=== PATIENT | female | born 1965 | race Caucasian/White ===

== ENCOUNTER 2018-09-09 11:40 | Inpatient (IN) | payer OTHER ==
[~2018-09-09] VITALS: Ht 157.5 cm; Wt 61.0 kg
[~2018-09-09 11:40] MED LIST: CALC-15 PO; DIVA250T45 PO; DOCU-275 PO; GEMF600T5 PO; LEVO75 PO; METO25XL PO; OXYB5 PO; QUET25TA PO
[2018-09-09] MEDS ORDERED: SODIUM CHLORIDE 0.9% 1,000 ML IV ONE ×2 (12:00→15:30)
[2018-09-09] MEDS ORDERED: IOVERSOL 320 MG/ML 100 ML VIAL ONE (12:05)
[2018-09-09] MEDS ORDERED: VITAD1000 PO (12:12)
[2018-09-09] MEDS ORDERED: BENZ1TAB10 PO (12:12)
[2018-09-09] MEDS ORDERED: GUAI100S35 PO (12:12)
[2018-09-09] MEDS ORDERED: ARIP5TAB8 PO (12:12)
[2018-09-09] MEDS ORDERED: LEVE500T53 PO (12:12)
[2018-09-09] MEDS ORDERED: [UNRECOGNIZED DRUG - CODE] PO (12:12)
[2018-09-09 13:18] LABS: BASOPHILS % (AUTO) 0.9 % (0.0-2.0); EOSINOPHILS % (AUTO) 0.7 % (1.0-6.0); HEMATOCRIT 32.6 % (36-46); HEMOGLOBIN 10.6 g/dL (12.0-16.0); LYMPHOCYTES # (AUTO) 1.4 K/uL (1.0-4.8); LYMPHOCYTES % (AUTO) 16.3 % (22.0-44.0); MEAN CORPUSCULAR HEMOGLOBIN 28.4 pg (26.0-34.0); MEAN CORPUSCULAR HGB CONC 32.6 G/dL (31.0-37.0); MEAN CORPUSCULAR VOLUME 87 fL (80-100); MONOCYTES # (AUTO) 0.6 K/uL (0.1-1.0); MONOCYTES % (AUTO) 7.3 % (2.0-9.0); NEUTROPHILS # (AUTO) 6.2 K/uL (1.8-7.7); NEUTROPHILS % (AUTO) 74.8 % (40.0-70.0); PLATELET COUNT (AUTO) 440 K/uL (150-450); RED BLOOD CELL COUNT(AUTO) 3.74 MIL/uL (4.00-5.20)
[2018-09-09 13:50] LABS: ALANINE AMINOTRANSFERASE 16 U/L (12-78); ALBUMIN 2.8 g/dL (3.4-5.0); ALKALINE PHOSPHATASE 85 U/L (46-116); ANION GAP 7 mmol/L (8-16); ASPARTATE AMINOTRANSFERASE 10 U/L (15-37); BILIRUBIN,TOTAL 0.4 mg/dL (0.1-1.0); CALCIUM, TOTAL 8.6 mg/dL (8.8-10.5); CARBON DIOXIDE 31 mmol/L (22-29); CHLORIDE 102 mmol/L (98-107); CREATININE 0.78 mg/dL (0.60-1.30); GLOMERULAR FILTR. RATE CALC > 60 mL/min (>60); GLUCOSE,RANDOM 85 mg/dL (70-110); POTASSIUM 3.7 mmol/L (3.5-5.1); SODIUM SERUM 140 mmol/L (136-145); TOTAL PROTEIN, SERUM 6.5 g/dL (6.4-8.2); UREA NITROGEN, BLOOD 15 mg/dL (7-18)
[2018-09-09 14:08] LABS: APPEARANCE,URINE CLOUDY (CLEAR); BILIRUBIN,URINE NEGATIVE (NEGATIVE); GLUCOSE, URINE (UA) NEGATIVE (NEGATIVE); KETONES,URINE TRACE mg/dL (NEGATIVE); LEUKOCYTE ESTERASE ,URINE NEGATIVE (NEGATIVE); NITRATE,URINE POSITIVE (NEGATIVE); OCCULT BLOOD,URINE MODERATE (NEGATIVE); PROTEIN,URINE NEGATIVE (NEGATIVE); UROBILINOGEN,URINE 0.2 mg/dL (<=1.0)
[2018-09-09 14:18] LABS: BACTERIA,URINE Many /HPF (None Seen); SQUAMOUS EPITHELIAL CELL,UR Few /LPF (None Seen); WBC,URINE 0-2 /HPF (0-5)
[2018-09-09] MEDS ORDERED: ONDANSETRON HCL 4 MG/2 ML VIAL IVP PRN (15:30)
[2018-09-09 17:00] VITALS: BP 120/79
[2018-09-09] MEDS: HEPARIN SODIUM,PORCINE 5,000 UNITS/ML VIAL SQ SCH (18:58)
[2018-09-09] MEDS: DEXTROSE 5%-0.45% SODIUM CHL 1,000 ML IV SCH (18:58)
[2018-09-09 19:30] VITALS: BP 113/71
[2018-09-09] MEDS: LEVOTHYROXINE SODIUM 100 MCG VIAL IVP SCH (21:25)
[2018-09-09] MEDS: CefTRIAXone SODIUM 1 GM in DEXTROSE 5%-WATER 10 ML IV SCH (21:26)
[2018-09-09 23:18] VITALS: BP 113/68
[2018-09-10] MEDS: HEPARIN SODIUM,PORCINE 5,000 UNITS/ML VIAL SQ SCH ×3 (01:08→16:29)
[2018-09-10 03:30] VITALS: BP 115/76
[2018-09-10] MEDS: DEXTROSE 5%-0.45% SODIUM CHL 1,000 ML IV SCH ×2 (05:51→16:22)
[2018-09-10 08:42] VITALS: BP 115/71
[2018-09-10] MEDS: LEVOTHYROXINE SODIUM 100 MCG VIAL IVP SCH (09:13)
[2018-09-10 10:54] LABS: BASOPHILS % (AUTO) 1.1 % (0.0-2.0); EOSINOPHILS % (AUTO) 0.2 % (1.0-6.0); HEMATOCRIT 32.2 % (36-46); HEMOGLOBIN 10.5 g/dL (12.0-16.0); LYMPHOCYTES # (AUTO) 0.7 K/uL (1.0-4.8); LYMPHOCYTES % (AUTO) 7.4 % (22.0-44.0); MEAN CORPUSCULAR HEMOGLOBIN 28.1 pg (26.0-34.0); MEAN CORPUSCULAR HGB CONC 32.7 G/dL (31.0-37.0); MEAN CORPUSCULAR VOLUME 86 fL (80-100); MONOCYTES # (AUTO) 0.5 K/uL (0.1-1.0); MONOCYTES % (AUTO) 4.7 % (2.0-9.0); NEUTROPHILS # (AUTO) 8.5 K/uL (1.8-7.7); PLATELET COUNT (AUTO) 408 K/uL (150-450); RED BLOOD CELL COUNT(AUTO) 3.75 MIL/uL (4.00-5.20); RED CELL DISTRIBUTION WIDTH 14.9 % (11.5-14.5)
[2018-09-10 10:56] LABS: NEUTROPHILS % (AUTO) 86.6 % (40.0-70.0)
[2018-09-10 11:04] LABS: ANION GAP 6 mmol/L (8-16); CARBON DIOXIDE 29 mmol/L (22-29); CHLORIDE 102 mmol/L (98-107); CREATININE 0.81 mg/dL (0.60-1.30); GLOMERULAR FILTR. RATE CALC > 60 mL/min (>60); GLUCOSE,RANDOM 141 mg/dL (70-110); POTASSIUM 3.5 mmol/L (3.5-5.1); SODIUM SERUM 137 mmol/L (136-145); UREA NITROGEN, BLOOD 10 mg/dL (7-18)
[2018-09-10 11:20] VITALS: BP 121/73
[2018-09-10] MEDS ORDERED: MAGNESIUM CITRATE 300 ML ORAL SOLUTION PO ONE (13:00)
[2018-09-10 15:41] VITALS: BP 127/78
[2018-09-10] MEDS: DOCUSATE SODIUM 100 MG CAPSULE PO SCH ×2 (16:22→20:48)
[2018-09-10 19:30] VITALS: BP 139/79
[2018-09-10] MEDS: CefTRIAXone SODIUM 1 GM in DEXTROSE 5%-WATER 10 ML IV SCH (21:30)
[2018-09-10 23:35] VITALS: BP 131/76
[2018-09-11] MEDS: HEPARIN SODIUM,PORCINE 5,000 UNITS/ML VIAL SQ SCH ×4 (00:23→23:37)
[2018-09-11] MEDS: DEXTROSE 5%-0.45% SODIUM CHL 1,000 ML IV SCH ×2 (02:57→13:21)
[2018-09-11 04:06] VITALS: BP 119/73
[2018-09-11 06:18] LABS: ANION GAP 6 mmol/L (8-16); CALCIUM, TOTAL 7.9 mg/dL (8.8-10.5); CARBON DIOXIDE 29 mmol/L (22-29); CHLORIDE 104 mmol/L (98-107); GLOMERULAR FILTR. RATE CALC > 60 mL/min (>60); GLUCOSE,RANDOM 137 mg/dL (70-110); POTASSIUM 3.1 mmol/L (3.5-5.1); SODIUM SERUM 139 mmol/L (136-145); UREA NITROGEN, BLOOD 9 mg/dL (7-18)
[2018-09-11 07:40] VITALS: BP 126/78
[2018-09-11] MEDS: DOCUSATE SODIUM 100 MG CAPSULE PO SCH ×2 (08:40→20:23)
[2018-09-11] MEDS: LEVOTHYROXINE SODIUM 100 MCG VIAL IVP SCH (08:41)
[2018-09-11 11:33] VITALS: BP 132/63
[2018-09-11] MEDS: POTASSIUM CHL 10 MEQ/WATER 50 ML IV PRN ×4 (13:22→23:37)
[2018-09-11 15:25] VITALS: BP 124/63
[2018-09-11 20:09] VITALS: BP 129/86
[2018-09-11] MEDS: CefTRIAXone SODIUM 1 GM in DEXTROSE 5%-WATER 10 ML IV SCH (20:23)
[2018-09-11] MEDS ORDERED: SODIUM CHLORIDE 0.9% 0 ML IV ONE (23:39)
[2018-09-12] VITALS (7 sets, daily range): BP systolic 118–128; BP diastolic 74–94
[2018-09-12] MEDS: POTASSIUM CHL 10 MEQ/WATER 50 ML IV PRN ×2 (00:45→01:39)
[2018-09-12] MEDS: DEXTROSE 5%-0.45% SODIUM CHL 1,000 ML IV SCH ×2 (05:19→19:42)
[2018-09-12 06:04] LABS: ANION GAP 6 mmol/L (8-16); CALCIUM, TOTAL 8.2 mg/dL (8.8-10.5); CARBON DIOXIDE 28 mmol/L (22-29); CHLORIDE 105 mmol/L (98-107); CREATININE 0.77 mg/dL (0.60-1.30); GLOMERULAR FILTR. RATE CALC > 60 mL/min (>60); GLUCOSE,RANDOM 111 mg/dL (70-110); POTASSIUM 3.8 mmol/L (3.5-5.1); SODIUM SERUM 139 mmol/L (136-145); UREA NITROGEN, BLOOD 8 mg/dL (7-18)
[2018-09-12 07:53] LABS: BASOPHILS % (AUTO) 0.7 % (0.0-2.0); EOSINOPHILS % (AUTO) 0.4 % (1.0-6.0); HEMATOCRIT 30.1 % (36-46); LYMPHOCYTES # (AUTO) 1.4 K/uL (1.0-4.8); LYMPHOCYTES % (AUTO) 12.9 % (22.0-44.0); MEAN CORPUSCULAR HEMOGLOBIN 28.5 pg (26.0-34.0); MEAN CORPUSCULAR HGB CONC 33.1 G/dL (31.0-37.0); MEAN CORPUSCULAR VOLUME 86 fL (80-100); MONOCYTES # (AUTO) 0.9 K/uL (0.1-1.0); MONOCYTES % (AUTO) 8.1 % (2.0-9.0); NEUTROPHILS # (AUTO) 8.4 K/uL (1.8-7.7); NEUTROPHILS % (AUTO) 77.9 % (40.0-70.0); PLATELET COUNT (AUTO) 365 K/uL (150-450); RED CELL DISTRIBUTION WIDTH 15.1 % (11.5-14.5)
[2018-09-12] MEDS: DOCUSATE SODIUM 100 MG CAPSULE PO SCH ×2 (09:00→20:13)
[2018-09-12] MEDS: LEVOTHYROXINE SODIUM 100 MCG VIAL IVP SCH (09:00)
[2018-09-12] MEDS: HEPARIN SODIUM,PORCINE 5,000 UNITS/ML VIAL SQ SCH ×3 (09:04→23:12)
[2018-09-12] MEDS: CefTRIAXone SODIUM 1 GM in DEXTROSE 5%-WATER 10 ML IV SCH (20:13)
[2018-09-13 05:06] VITALS: BP 122/89
[2018-09-13] MEDS: DEXTROSE 5%-0.45% SODIUM CHL 1,000 ML IV SCH ×3 (06:24→20:28)
[2018-09-13 07:28] VITALS: BP 138/71
[2018-09-13] MEDS ORDERED: LORazepam 2 MG/ML VIAL IM PRN (07:45)
[2018-09-13] MEDS: LORazepam 2 MG/ML VIAL IVP PRN ×2 (07:45→09:31)
[2018-09-13 08:00] VITALS: BP 123/73
[2018-09-13] MEDS: HEPARIN SODIUM,PORCINE 5,000 UNITS/ML VIAL SQ SCH ×2 (08:00→16:00)
[2018-09-13] MEDS ORDERED: [UNRECOGNIZED DRUG - REMARK] PO PRN (08:00)
[2018-09-13] MEDS ORDERED: LevETIRAcetam 1,000 MG in DEXTROSE 5%-WATER 100 ML IV ONE (08:15)
[2018-09-13] MEDS ORDERED: LORazepam 2 MG/ML VIAL IVP ONE ×2 (08:15→09:00)
[2018-09-13] MEDS: ARIPiprazole 5 MG TABLET PO SCH (09:00)
[2018-09-13] MEDS: LevETIRAcetam 500 MG TABLET PO SCH (09:00)
[2018-09-13] MEDS: DOCUSATE SODIUM 100 MG CAPSULE PO SCH (09:00)
[2018-09-13] MEDS: BENZTROPINE MESYLATE 1 MG TABLET PO SCH (09:00)
[2018-09-13] MEDS: CALCIUM OYSTER SHELL 500 MG TABLET PO SCH (09:00)
[2018-09-13] MEDS: CHOLECALCIFEROL (VIT D3) 1,000 UNITS TABLET PO SCH (09:00)
[2018-09-13 09:04] LABS: GLUCOMETER DEV NAME(LOC) 6N 1E; GLUCOSE,POINT OF CARE 239 MG/DL (70-110)
[2018-09-13 12:00] VITALS: BP 106/66
[2018-09-13 16:00] VITALS: BP 123/73
[2018-09-13] MEDS ORDERED: DILTIAZEM HCL 125 MG in DEXTROSE 5%-WATER 100 ML IV PRN (18:44)
[2018-09-13 19:24] LABS: BASOPHILS % (AUTO) 0.4 % (0.0-2.0); EOSINOPHILS % (AUTO) 0.1 % (1.0-6.0); HEMATOCRIT 29.1 % (36-46); HEMOGLOBIN 9.7 g/dL (12.0-16.0); LYMPHOCYTES # (AUTO) 0.9 K/uL (1.0-4.8); LYMPHOCYTES % (AUTO) 8.5 % (22.0-44.0); MEAN CORPUSCULAR HEMOGLOBIN 28.3 pg (26.0-34.0); MEAN CORPUSCULAR HGB CONC 33.2 G/dL (31.0-37.0); MEAN CORPUSCULAR VOLUME 85 fL (80-100); MONOCYTES # (AUTO) 0.7 K/uL (0.1-1.0); MONOCYTES % (AUTO) 6.3 % (2.0-9.0); NEUTROPHILS # (AUTO) 8.9 K/uL (1.8-7.7); NEUTROPHILS % (AUTO) 84.7 % (40.0-70.0); PLATELET COUNT (AUTO) 272 K/uL (150-450); RED BLOOD CELL COUNT(AUTO) 3.42 MIL/uL (4.00-5.20)
[2018-09-13 19:46] LABS: ALANINE AMINOTRANSFERASE 26 U/L (12-78); ALBUMIN 2.3 g/dL (3.4-5.0); ALKALINE PHOSPHATASE 95 U/L (46-116); ANION GAP 5 mmol/L (8-16); ASPARTATE AMINOTRANSFERASE 19 U/L (15-37); BILIRUBIN,TOTAL 0.4 mg/dL (0.1-1.0); CALCIUM, TOTAL 7.8 mg/dL (8.8-10.5); CARBON DIOXIDE 27 mmol/L (22-29); CHLORIDE 103 mmol/L (98-107); CREATININE 0.81 mg/dL (0.60-1.30); GLOMERULAR FILTR. RATE CALC > 60 mL/min (>60); GLUCOSE,RANDOM 96 mg/dL (70-110); POTASSIUM 3.3 mmol/L (3.5-5.1); SODIUM SERUM 135 mmol/L (136-145); TOTAL PROTEIN, SERUM 5.7 g/dL (6.4-8.2); UREA NITROGEN, BLOOD 9 mg/dL (7-18)
[2018-09-13 20:00] VITALS: BP 135/83
[2018-09-13] MEDS ORDERED: ACETAMINOPHEN 650 MG RECTAL SUPPOSITORY PR PRN (20:15)
[2018-09-13 20:44] LABS: PHOSPHORUS 3.5 mg/dL (2.5-4.9)
[2018-09-13] MEDS ORDERED: POTASSIUM CHLORIDE 10% 40 MEQ/30 ML LIQUID UDCUP NG ONE (20:45)
[2018-09-13] MEDS: ACETAMINOPHEN 650 MG/20.3 ML SOLUTION UDCUP NG PRN (20:56)
[2018-09-13] MEDS: QUEtiapine FUMARATE 25 MG TABLET PO SCH (21:00)
[2018-09-14] VITALS: BP 134/82
[2018-09-14] MEDS: CALCIUM OYSTER SHELL 500 MG TABLET PO SCH ×3 (00:04→21:25)
[2018-09-14] MEDS: BENZTROPINE MESYLATE 1 MG TABLET PO SCH ×3 (00:04→21:26)
[2018-09-14] MEDS: DOCUSATE SODIUM 100 MG CAPSULE PO SCH ×3 (00:04→20:06)
[2018-09-14] MEDS: LevETIRAcetam 500 MG TABLET PO SCH ×3 (00:04→21:25)
[2018-09-14] MEDS: HEPARIN SODIUM,PORCINE 5,000 UNITS/ML VIAL SQ SCH ×4 (00:05→23:47)
[2018-09-14] MEDS: CefTRIAXone SODIUM 1 GM in DEXTROSE 5%-WATER 10 ML IV SCH ×2 (00:05→20:07)
[2018-09-14 04:00] VITALS: BP 111/72
[2018-09-14 05:08] LABS: ANION GAP 6 mmol/L (8-16); CARBON DIOXIDE 27 mmol/L (22-29); CHLORIDE 102 mmol/L (98-107); GLOMERULAR FILTR. RATE CALC > 60 mL/min (>60); GLUCOSE,RANDOM 126 mg/dL (70-110); POTASSIUM 3.5 mmol/L (3.5-5.1); SODIUM SERUM 135 mmol/L (136-145); UREA NITROGEN, BLOOD 12 mg/dL (7-18)
[2018-09-14] MEDS: LEVOTHYROXINE SODIUM 75 MCG TABLET PO SCH (06:07)
[2018-09-14 08:00] VITALS: BP 101/66
[2018-09-14] MEDS: DEXTROSE 5%-0.45% SODIUM CHL 1,000 ML IV SCH ×2 (09:22→20:05)
[2018-09-14] MEDS: CHOLECALCIFEROL (VIT D3) 1,000 UNITS TABLET PO SCH (09:32)
[2018-09-14] MEDS: ARIPiprazole 5 MG TABLET PO SCH (09:33)
[2018-09-14 12:00] VITALS: BP 115/66
[2018-09-14] MEDS: MAGNESIUM HYDROXIDE SUSPENSION 30 ML UDCUP PO PRN (13:59)
[2018-09-14] MEDS: ACETAMINOPHEN 650 MG/20.3 ML SOLUTION UDCUP NG PRN (14:01)
[2018-09-14 16:00] VITALS: BP 107/57
[2018-09-14 20:00] VITALS: BP 90/59
[2018-09-14] MEDS: QUEtiapine FUMARATE 25 MG TABLET PO SCH (20:05)
[2018-09-14] MEDS ORDERED: PEG 3350/NA SULF,BICARB,CL/KCL 4000 ML SOLUTION PO ONE (20:15)
[2018-09-14] MEDS: DILTIAZEM HCL CD 120 MG ER CAPSULE PO SCH (21:25)
[2018-09-15] VITALS: BP 90/57
[2018-09-15 04:00] VITALS: BP 99/59
[2018-09-15 05:00] LABS: BASOPHILS % (AUTO) 0.4 % (0.0-2.0); EOSINOPHILS % (AUTO) 0.3 % (1.0-6.0); HEMATOCRIT 28.6 % (36-46); HEMOGLOBIN 9.4 g/dL (12.0-16.0); LYMPHOCYTES # (AUTO) 1.4 K/uL (1.0-4.8); LYMPHOCYTES % (AUTO) 12.7 % (22.0-44.0); MEAN CORPUSCULAR HEMOGLOBIN 28.1 pg (26.0-34.0); MEAN CORPUSCULAR HGB CONC 32.8 G/dL (31.0-37.0); MEAN CORPUSCULAR VOLUME 86 fL (80-100); MONOCYTES % (AUTO) 8.8 % (2.0-9.0); NEUTROPHILS # (AUTO) 8.4 K/uL (1.8-7.7); NEUTROPHILS % (AUTO) 77.8 % (40.0-70.0); PLATELET COUNT (AUTO) 254 K/uL (150-450); RED BLOOD CELL COUNT(AUTO) 3.33 MIL/uL (4.00-5.20)
[2018-09-15 05:21] LABS: ALANINE AMINOTRANSFERASE 35 U/L (12-78); ALKALINE PHOSPHATASE 104 U/L (46-116); ANION GAP 8 mmol/L (8-16); ASPARTATE AMINOTRANSFERASE 32 U/L (15-37); BILIRUBIN,TOTAL 0.3 mg/dL (0.1-1.0); CALCIUM, TOTAL 7.7 mg/dL (8.8-10.5); CARBON DIOXIDE 27 mmol/L (22-29); CHLORIDE 103 mmol/L (98-107); CREATININE 0.77 mg/dL (0.60-1.30); GLOMERULAR FILTR. RATE CALC > 60 mL/min (>60); GLUCOSE,RANDOM 103 mg/dL (70-110); POTASSIUM 3.6 mmol/L (3.5-5.1); SODIUM SERUM 138 mmol/L (136-145); TOTAL PROTEIN, SERUM 5.3 g/dL (6.4-8.2); UREA NITROGEN, BLOOD 12 mg/dL (7-18)
[2018-09-15] MEDS: LEVOTHYROXINE SODIUM 75 MCG TABLET PO SCH (06:06)
[2018-09-15] MEDS: DEXTROSE 5%-0.45% SODIUM CHL 1,000 ML IV SCH ×2 (06:07→16:05)
[2018-09-15 08:00] VITALS: BP_SYST 102; BP_SYST 110; BP_DIAS 62; BP_DIAS 71
[2018-09-15] MEDS: HEPARIN SODIUM,PORCINE 5,000 UNITS/ML VIAL SQ SCH ×3 (10:16→23:49)
[2018-09-15] MEDS: CALCIUM OYSTER SHELL 500 MG TABLET PO SCH ×2 (10:16→20:21)
[2018-09-15] MEDS: DILTIAZEM HCL CD 120 MG ER CAPSULE PO SCH (10:16)
[2018-09-15] MEDS: LevETIRAcetam 500 MG TABLET PO SCH ×2 (10:16→20:21)
[2018-09-15] MEDS: DOCUSATE SODIUM 100 MG CAPSULE PO SCH ×2 (10:16→20:21)
[2018-09-15] MEDS: CHOLECALCIFEROL (VIT D3) 1,000 UNITS TABLET PO SCH (10:16)
[2018-09-15] MEDS: ARIPiprazole 5 MG TABLET PO SCH (10:17)
[2018-09-15] MEDS: BENZTROPINE MESYLATE 1 MG TABLET PO SCH ×2 (10:17→20:21)
[2018-09-15 12:00] VITALS: BP 110/71
[2018-09-15 13:27] LABS: PROTHROMBIN TIME 10.1 SEC (9.4-11.6)
[2018-09-15 16:00] VITALS: BP 108/78
[2018-09-15] MEDS: BISACODYL 10 MG RECTAL RECTAL SUPPOSITORY PR PRN (16:32)
[2018-09-15] MEDS: CefTRIAXone SODIUM 1 GM in DEXTROSE 5%-WATER 10 ML IV SCH (19:55)
[2018-09-15 20:00] VITALS: BP 111/69
[2018-09-15] MEDS: QUEtiapine FUMARATE 25 MG TABLET PO SCH (20:21)
[2018-09-15] MEDS: PEG 3350/NA SULF,BICARB,CL/KCL 4000 ML SOLUTION PO SCH ×2 (21:57→23:50)
[2018-09-16] VITALS: BP 98/62
[2018-09-16] MEDS: PEG 3350/NA SULF,BICARB,CL/KCL 4000 ML SOLUTION PO SCH ×11 (02:05→23:44)
[2018-09-16] MEDS: DEXTROSE 5%-0.45% SODIUM CHL 1,000 ML IV SCH ×3 (02:06→20:21)
[2018-09-16 04:12] VITALS: BP 107/64
[2018-09-16 05:10] LABS: ANION GAP 6 mmol/L (8-16); CALCIUM, TOTAL 7.9 mg/dL (8.8-10.5); CARBON DIOXIDE 29 mmol/L (22-29); CHLORIDE 103 mmol/L (98-107); CREATININE 0.77 mg/dL (0.60-1.30); GLOMERULAR FILTR. RATE CALC > 60 mL/min (>60); GLUCOSE,RANDOM 114 mg/dL (70-110); POTASSIUM 3.2 mmol/L (3.5-5.1); SODIUM SERUM 138 mmol/L (136-145); UREA NITROGEN, BLOOD 11 mg/dL (7-18)
[2018-09-16] MEDS: MAGNESIUM HYDROXIDE SUSPENSION 30 ML UDCUP PO PRN (06:18)
[2018-09-16] MEDS: LEVOTHYROXINE SODIUM 75 MCG TABLET PO SCH (06:18)
[2018-09-16] MEDS: BISACODYL 10 MG RECTAL RECTAL SUPPOSITORY PR PRN (06:21)
[2018-09-16] MEDS: POTASSIUM CHL 10 MEQ/WATER 50 ML IV PRN ×3 (07:22→08:40)
[2018-09-16] MEDS: ARIPiprazole 5 MG TABLET PO SCH (08:38)
[2018-09-16] MEDS: BENZTROPINE MESYLATE 1 MG TABLET PO SCH ×2 (08:38→20:22)
[2018-09-16] MEDS: LevETIRAcetam 500 MG TABLET PO SCH ×2 (08:38→20:22)
[2018-09-16] MEDS: HEPARIN SODIUM,PORCINE 5,000 UNITS/ML VIAL SQ SCH ×3 (08:38→23:46)
[2018-09-16] MEDS: CALCIUM OYSTER SHELL 500 MG TABLET PO SCH ×2 (08:39→20:21)
[2018-09-16] MEDS: DOCUSATE SODIUM 100 MG CAPSULE PO SCH ×2 (08:39→20:21)
[2018-09-16] MEDS: DILTIAZEM HCL CD 120 MG ER CAPSULE PO SCH (08:39)
[2018-09-16] MEDS: CHOLECALCIFEROL (VIT D3) 1,000 UNITS TABLET PO SCH (08:39)
[2018-09-16 13:00] VITALS: BP 97/49
[2018-09-16] MEDS ORDERED: POTASSIUM CHLORIDE 10% 40 MEQ/30 ML LIQUID UDCUP NG ONE (13:30)
[2018-09-16] MEDS ORDERED: POTASSIUM CHL 10 MEQ/WATER 50 ML IV ONE (14:15)
[2018-09-16 16:00] VITALS: BP 104/57
[2018-09-16 20:00] VITALS: BP 93/45
[2018-09-16] MEDS: CefTRIAXone SODIUM 1 GM in DEXTROSE 5%-WATER 10 ML IV SCH (20:08)
[2018-09-16] MEDS: QUEtiapine FUMARATE 25 MG TABLET PO SCH (20:21)
[2018-09-17] VITALS (8 sets, daily range): BP systolic 96–122; BP diastolic 50–79
[2018-09-17] MEDS: PEG 3350/NA SULF,BICARB,CL/KCL 4000 ML SOLUTION PO SCH ×12 (01:47→22:00)
[2018-09-17 05:08] LABS: HEMATOCRIT 24.3 % (36-46); HEMOGLOBIN 8.1 g/dL (12.0-16.0); MEAN CORPUSCULAR HEMOGLOBIN 28.4 pg (26.0-34.0); MEAN CORPUSCULAR HGB CONC 33.2 G/dL (31.0-37.0); MEAN CORPUSCULAR VOLUME 86 fL (80-100); PLATELET COUNT (AUTO) 222 K/uL (150-450); RED BLOOD CELL COUNT(AUTO) 2.84 MIL/uL (4.00-5.20); RED CELL DISTRIBUTION WIDTH 14.9 % (11.5-14.5)
[2018-09-17 05:15] LABS: ANION GAP 4 mmol/L (8-16); CALCIUM, TOTAL 7.9 mg/dL (8.8-10.5); CARBON DIOXIDE 28 mmol/L (22-29); CHLORIDE 104 mmol/L (98-107); CREATININE 0.73 mg/dL (0.60-1.30); GLOMERULAR FILTR. RATE CALC > 60 mL/min (>60); GLUCOSE,RANDOM 116 mg/dL (70-110); PHOSPHORUS 2.7 mg/dL (2.5-4.9); POTASSIUM 4.3 mmol/L (3.5-5.1); SODIUM SERUM 136 mmol/L (136-145); UREA NITROGEN, BLOOD 11 mg/dL (7-18)
[2018-09-17 05:29] LABS: BAND NEUTROPHILS % (MANUAL) 12 % (0-5); EOSINOPHILS % (MANUAL) 5 % (1-6); LYMPHOCYTES % (MANUAL) 9 % (22-44); MONOCYTES % (MANUAL) 8 % (2-9); SEGMENTED NEUTROPHILS % 66 % (40-70)
[2018-09-17] MEDS: LEVOTHYROXINE SODIUM 100 MCG TABLET PO SCH (06:26)
[2018-09-17] MEDS: DEXTROSE 5%-0.45% SODIUM CHL 1,000 ML IV SCH (07:42)
[2018-09-17] MEDS: LevETIRAcetam 500 MG TABLET PO SCH ×2 (09:09→20:30)
[2018-09-17] MEDS: ARIPiprazole 5 MG TABLET PO SCH (09:09)
[2018-09-17] MEDS: BENZTROPINE MESYLATE 1 MG TABLET PO SCH ×2 (09:09→20:30)
[2018-09-17] MEDS: DOCUSATE SODIUM 100 MG CAPSULE PO SCH ×2 (09:09→20:30)
[2018-09-17] MEDS: HEPARIN SODIUM,PORCINE 5,000 UNITS/ML VIAL SQ SCH ×2 (09:09→17:23)
[2018-09-17] MEDS: CHOLECALCIFEROL (VIT D3) 1,000 UNITS TABLET PO SCH (09:11)
[2018-09-17] MEDS: DILTIAZEM HCL CD 120 MG ER CAPSULE PO SCH (09:11)
[2018-09-17] MEDS: CALCIUM OYSTER SHELL 500 MG TABLET PO SCH ×2 (09:12→20:30)
[2018-09-17] MEDS: QUEtiapine FUMARATE 25 MG TABLET PO SCH (20:30)
[2018-09-18] MEDS: PEG 3350/NA SULF,BICARB,CL/KCL 4000 ML SOLUTION PO SCH ×11 (00:13→19:51)
[2018-09-18] MEDS: HEPARIN SODIUM,PORCINE 5,000 UNITS/ML VIAL SQ SCH ×4 (00:14→23:31)
[2018-09-18 04:43] VITALS: BP 105/62
[2018-09-18] MEDS: LEVOTHYROXINE SODIUM 100 MCG TABLET PO SCH (06:03)
[2018-09-18 08:10] VITALS: BP 116/73
[2018-09-18] MEDS: ARIPiprazole 5 MG TABLET PO SCH (08:10)
[2018-09-18] MEDS: DILTIAZEM HCL CD 120 MG ER CAPSULE PO SCH (08:10)
[2018-09-18] MEDS: BENZTROPINE MESYLATE 1 MG TABLET PO SCH ×2 (08:10→19:50)
[2018-09-18] MEDS: DOCUSATE SODIUM 100 MG CAPSULE PO SCH ×2 (08:10→19:50)
[2018-09-18] MEDS: CALCIUM OYSTER SHELL 500 MG TABLET PO SCH ×2 (08:10→19:51)
[2018-09-18] MEDS: LevETIRAcetam 500 MG TABLET PO SCH ×2 (08:10→19:50)
[2018-09-18] MEDS: CHOLECALCIFEROL (VIT D3) 2,000 UNITS TABLET PO SCH (08:10)
[2018-09-18 11:44] VITALS: BP 114/62
[2018-09-18] MEDS: DEXTROSE 5%-0.45% SODIUM CHL 1,000 ML IV SCH (15:32)
[2018-09-18 17:43] VITALS: BP 116/66
[2018-09-18] MEDS: QUEtiapine FUMARATE 25 MG TABLET PO SCH (19:50)
[2018-09-18 19:52] VITALS: BP 125/65
[2018-09-18 23:49] VITALS: BP 106/65
[2018-09-19 04:48] VITALS: BP 97/63
[2018-09-19] MEDS: DEXTROSE 5%-0.45% SODIUM CHL 1,000 ML IV SCH (05:12)
[2018-09-19] MEDS: LEVOTHYROXINE SODIUM 100 MCG TABLET PO SCH (06:01)
[2018-09-19 07:32] LABS: BASOPHILS % (AUTO) 0.6 % (0.0-2.0); EOSINOPHILS % (AUTO) 0.8 % (1.0-6.0); HEMATOCRIT 24.8 % (36-46); HEMOGLOBIN 8.1 g/dL (12.0-16.0); LYMPHOCYTES # (AUTO) 1.4 K/uL (1.0-4.8); LYMPHOCYTES % (AUTO) 11.3 % (22.0-44.0); MEAN CORPUSCULAR HGB CONC 32.9 G/dL (31.0-37.0); MEAN CORPUSCULAR VOLUME 85 fL (80-100); MONOCYTES # (AUTO) 0.8 K/uL (0.1-1.0); NEUTROPHILS # (AUTO) 10.2 K/uL (1.8-7.7); NEUTROPHILS % (AUTO) 81.3 % (40.0-70.0); PLATELET COUNT (AUTO) 357 K/uL (150-450); RED CELL DISTRIBUTION WIDTH 15.3 % (11.5-14.5)
[2018-09-19 07:58] LABS: ANION GAP 4 mmol/L (8-16); CALCIUM, TOTAL 8.2 mg/dL (8.8-10.5); CARBON DIOXIDE 30 mmol/L (22-29); CHLORIDE 103 mmol/L (98-107); CREATININE 0.76 mg/dL (0.60-1.30); GLOMERULAR FILTR. RATE CALC > 60 mL/min (>60); GLUCOSE,RANDOM 107 mg/dL (70-110); SODIUM SERUM 137 mmol/L (136-145); UREA NITROGEN, BLOOD 8 mg/dL (7-18)
[2018-09-19 08:00] VITALS: BP 96/61
[2018-09-19] MEDS: DILTIAZEM HCL CD 120 MG ER CAPSULE PO SCH (09:00)
[2018-09-19] MEDS: HEPARIN SODIUM,PORCINE 5,000 UNITS/ML VIAL SQ SCH ×3 (09:35→23:21)
[2018-09-19] MEDS: BENZTROPINE MESYLATE 1 MG TABLET PO SCH ×2 (09:35→20:51)
[2018-09-19] MEDS: DOCUSATE SODIUM 100 MG CAPSULE PO SCH ×2 (09:35→20:51)
[2018-09-19] MEDS: CALCIUM OYSTER SHELL 500 MG TABLET PO SCH ×2 (09:35→20:52)
[2018-09-19] MEDS: LevETIRAcetam 500 MG TABLET PO SCH ×2 (09:36→20:51)
[2018-09-19] MEDS: CHOLECALCIFEROL (VIT D3) 2,000 UNITS TABLET PO SCH (09:36)
[2018-09-19] MEDS: ARIPiprazole 5 MG TABLET PO SCH (09:36)
[2018-09-19 12:00] VITALS: BP 94/61
[2018-09-19 15:22] VITALS: BP 106/57
[2018-09-19 19:36] VITALS: BP 101/61
[2018-09-19] MEDS: QUEtiapine FUMARATE 25 MG TABLET PO SCH (20:51)
[2018-09-19 23:18] VITALS: BP 103/58
[2018-09-20] MEDS: DEXTROSE 5%-0.45% SODIUM CHL 1,000 ML IV SCH (02:32)
[2018-09-20 04:55] VITALS: BP 108/69
[2018-09-20] MEDS: LEVOTHYROXINE SODIUM 100 MCG TABLET PO SCH (06:17)
[2018-09-20 08:21] VITALS: BP 110/79
[2018-09-20] MEDS: CHOLECALCIFEROL (VIT D3) 2,000 UNITS TABLET PO SCH (08:51)
[2018-09-20] MEDS: DOCUSATE SODIUM 100 MG CAPSULE PO SCH ×2 (08:51→19:59)
[2018-09-20] MEDS: ARIPiprazole 5 MG TABLET PO SCH (08:51)
[2018-09-20] MEDS: HEPARIN SODIUM,PORCINE 5,000 UNITS/ML VIAL SQ SCH ×3 (08:51→23:20)
[2018-09-20] MEDS: CALCIUM OYSTER SHELL 500 MG TABLET PO SCH ×2 (08:51→19:58)
[2018-09-20] MEDS: BENZTROPINE MESYLATE 1 MG TABLET PO SCH ×2 (08:51→19:58)
[2018-09-20] MEDS: LevETIRAcetam 500 MG TABLET PO SCH ×2 (08:51→19:59)
[2018-09-20] MEDS: DILTIAZEM HCL CD 180 MG ER CAPSULE PO SCH (08:51)
[2018-09-20 11:48] VITALS: BP 99/54
[2018-09-20 16:06] VITALS: BP 101/56
[2018-09-20 19:47] VITALS: BP 101/64
[2018-09-20] MEDS: QUEtiapine FUMARATE 25 MG TABLET PO SCH (19:59)
[2018-09-20 23:21] VITALS: BP 93/51
[2018-09-21 04:35] VITALS: BP 104/62
[2018-09-21] MEDS: LEVOTHYROXINE SODIUM 100 MCG TABLET PO SCH (06:10)
[2018-09-21 07:58] VITALS: BP 97/52
[2018-09-21] MEDS: ARIPiprazole 5 MG TABLET PO SCH (08:17)
[2018-09-21] MEDS: DILTIAZEM HCL CD 180 MG ER CAPSULE PO SCH (08:17)
[2018-09-21] MEDS: DOCUSATE SODIUM 100 MG CAPSULE PO SCH ×2 (08:17→20:28)
[2018-09-21] MEDS: HEPARIN SODIUM,PORCINE 5,000 UNITS/ML VIAL SQ SCH ×2 (08:17→15:44)
[2018-09-21] MEDS: CALCIUM OYSTER SHELL 500 MG TABLET PO SCH ×2 (08:17→20:28)
[2018-09-21] MEDS: BENZTROPINE MESYLATE 1 MG TABLET PO SCH ×2 (08:17→20:28)
[2018-09-21] MEDS: CHOLECALCIFEROL (VIT D3) 2,000 UNITS TABLET PO SCH (08:17)
[2018-09-21] MEDS: LevETIRAcetam 500 MG TABLET PO SCH (08:17)
[2018-09-21 11:30] VITALS: BP 112/64
[2018-09-21 15:34] VITALS: BP 92/52
[2018-09-21 20:07] VITALS: BP 100/58
[2018-09-21] MEDS: QUEtiapine FUMARATE 25 MG TABLET PO SCH (20:32)
[2018-09-21] MEDS: LevETIRAcetam 100 MG/ML 5 ML SOLUTION UDCUP PO SCH (20:35)
[2018-09-21 23:19] VITALS: BP 106/66
[2018-09-22 04:12] VITALS: BP 99/58
[2018-09-22] MEDS: HEPARIN SODIUM,PORCINE 5,000 UNITS/ML VIAL SQ SCH ×3 (04:16→09:02)
[2018-09-22] MEDS: LEVOTHYROXINE SODIUM 100 MCG TABLET PO SCH (06:34)
[2018-09-22 07:50] VITALS: BP 111/66
[2018-09-22] MEDS: BENZTROPINE MESYLATE 1 MG TABLET PO SCH (09:01)
[2018-09-22] MEDS: DOCUSATE SODIUM 100 MG CAPSULE PO SCH (09:01)
[2018-09-22] MEDS: CALCIUM OYSTER SHELL 500 MG TABLET PO SCH (09:01)
[2018-09-22] MEDS: ARIPiprazole 5 MG TABLET PO SCH (09:01)
[2018-09-22] MEDS: CHOLECALCIFEROL (VIT D3) 2,000 UNITS TABLET PO SCH (09:02)
[2018-09-22] MEDS: LevETIRAcetam 100 MG/ML 5 ML SOLUTION UDCUP PO SCH (09:02)
[2018-09-22] MEDS: DILTIAZEM HCL CD 180 MG ER CAPSULE PO SCH (09:02)
[2018-09-22 12:00] VITALS: BP 105/80
[2018-09-22] MEDS ORDERED: DSS100 PO (13:59)
[2018-09-22] MEDS ORDERED: LEVE500T53 PO (13:59)
[2018-09-22] MEDS ORDERED: DILT180C88 PO (13:59)
[2018-09-22 16:35] VITALS: BP 113/66
== END 2018-09-22 16:40 | disposition home or self-care (01) | DRG 389 ==
LOC: EMS 11:41 → 6N 16:01 → ICU 09-13 08:28 → ICUN 09-16 12:30 → 6N 09-17 16:15
PROVIDERS: ADMIT Internal Medicine; ATTEND Internal Medicine
DX: K56.41 Fecal impaction (principal); N39.0 Urinary tract infection, site not specified; I47.1 Supraventricular tachycardia; E03.9 Hypothyroidism, unspecified; F79 Unspecified intellectual disabilities; I10 Essential (primary) hypertension; R13.10 Dysphagia, unspecified; E87.6 Hypokalemia; E78.00 Pure hypercholesterolemia, unspecified; E78.5 Hyperlipidemia, unspecified; E86.0 Dehydration; F41.1 Generalized anxiety disorder; G40.909 Epilepsy, unspecified, not intractable, without status epilepticus; I48.91 Unspecified atrial fibrillation; R13.11 Dysphagia, oral phase; R13.12 Dysphagia, oropharyngeal phase; Z23 Encounter for immunization
CPT/HCPCS: 51701; 70450; 70491; 74018; 74019; 74230; 83735; 84100; 84132; 85007; 87040; 87070; 87081; 87086; 87205; 90686; 92526; 92610; 92611; 93005; 95816; 97163; G0378; J0696; J0712; J1644; J2060; J3480; J3490; J7030; J7060